=== PATIENT | female | born 1975 | race Native Hawaiian/Other Pacific Islander ===

== ENCOUNTER → 2018-02-19 | Outpatient (CLI) | payer MEDICARE | LOC: M EKG 12:14 | DX: Z01.818 Encounter for other preprocedural examination (principal) | CPT/HCPCS: 93005 ==

== ENCOUNTER 2018-04-12 14:50 | Inpatient (IN) | payer MEDICARE, BC ==
[2018-04-12] MEDS: MORPHINE 2 MG/ML 1ML SYRINGE (J2270) IV (15:52)
[2018-04-12 15:54] LABS: BASO % 0.3 % (0.0-1.0); EOS # 0.3 10^3/uL (0.0-0.50); EOS % 4.6 % (0.0-3.0); HEMATOCRIT 29.3 % (36.0-47.0); HEMOGLOBIN 9.6 g/dl (12.0-15.5); IMMATURE GRANULOCYTE % 0.3 % (0-3.0); LYMPH # 0.8 10^3/uL (1.5-4.5); LYMPH % 12.1 % (24.0-44.0); MEAN CORPUSCULAR HEMOGLOBIN 32.1 pg (27.0-33.0); MEAN CORPUSCULAR HGB CONC 32.8 g/dl (32.0-36.5); MONO # 0.5 10^3/uL (0.0-0.8); MONO % 8.3 % (0.0-5.0); NEUTROPHILS # 4.7 10^3/uL (1.8-7.7); NEUTROPHILS % 74.4 % (36.0-66.0); PLATELET COUNT, AUTOMATED 176 10^3/uL (150-450); RED BLOOD COUNT 2.99 10^6/uL (4.00-5.40); RED CELL DISTRIBUTION WIDTH 12.9 % (11.5-14.5); WHITE BLOOD COUNT 6.3 10^3/uL (4.0-10.0)
[2018-04-12 16:08] LABS: ALBUMIN 3.1 GM/DL (3.2-5.2); ALBUMIN/GLOBULIN RATIO 0.79 (1.00-1.93); ALKALINE PHOSPHATASE 86 U/L (45-117); ALT/SGPT 17 U/L (12-78); ANION GAP 14 MEQ/L (8-16); AST/SGOT 10 U/L (7-37); BILIRUBIN,DIRECT < 0.1 MG/DL (0.0-0.2); BILIRUBIN,TOTAL 0.3 MG/DL (0.2-1.0); BLOOD UREA NITROGEN 88 MG/DL (7-18); CALCIUM LEVEL 7.5 MG/DL (8.5-10.1); CARBON DIOXIDE LEVEL 25 MEQ/L (21-32); CHLORIDE LEVEL 97 MEQ/L (98-107); CPK CREATINE PHOSPHOKINASE 219 U/L (26-192); GLOMERULAR FILTRATION RATE 2.4 (>58); GLUCOSE, FASTING 76 MG/DL (70-100); SODIUM LEVEL 136 MEQ/L (136-145); TROPONIN I 0.05 NG/ML (< 0.10)
[2018-04-12 16:12] LABS: POTASSIUM SERUM 6.5 MEQ/L (3.5-5.1)
[2018-04-12 16:14] LABS: CK-MB VALUE MASS 1.9 NG/ML (<3.6); MB/CK RELATIVE INDEX 0.86 (< OR =4)
[2018-04-12] MEDS: HYDROMORPHONE HCL 0.5 MG/ 0.5 ML SYRINGE (J1170 PER 1) IV (18:07)
[2018-04-12] MEDS ORDERED: HEPARIN SOD (PORCINE) 5000 UNITS/ML VIAL SC (18:30)
[2018-04-12] MEDS ORDERED: PERCOCET 5MG/325MG TAB PO (18:30)
[2018-04-12] MEDS: METOPROLOL SUCC (TopROL XL) 50MG **XL** TAB PO (20:38)
[2018-04-12] MEDS: **hydrALAZINE** 50 MG TAB PO (20:38)
[2018-04-12] MEDS: AMITRIPTYLINE 10 MG TAB PO (20:38)
[2018-04-12] MEDS: PERCOCET 5MG/325MG TAB PO (20:39)
[2018-04-12] MEDS: ONDANSETRON 4MG/2ML VIAL (J2405) IV (20:39)
[2018-04-12] MEDS: SOD POLYSTYRENE SULFONATE SUSP 15 GM/60 ML UD PO (20:49)
[2018-04-12] MEDS: HEPARIN SOD (PORCINE) 5000 UNITS/ML VIAL SC (22:33)
[2018-04-13] MEDS: GENTAMICIN SULF INJ 80MG/2ML VIAL (J1580) IP (00:31)
[2018-04-13] MEDS: VANCOMYCIN 1000 MG/20 ML VIAL (J3370) IP (00:31)
[2018-04-13] MEDS: MORPHINE 4 MG/ML 1ML VIAL/SYRINGE (J2270) IV ×2 (00:40→05:09)
[2018-04-13 01:31] LABS: BF MONONUCLEAR CELL % 93.6 % (0-0); BF POLYMORPHONUCLEAR CELL % 6.4 % (0-0); RBC BODY FLUID < 2 10^3/uL (<2); WBC BODY FLUID 47 /uL (0-10)
[2018-04-13 01:33] LABS: APPEARANCE, BODY FLUID CLEAR (CLEAR); BF DIFF IF INDICATED? YES (NO); PERITONEAL FL COLOR PALE YELLOW (COLORLESS); SOURCE, BODY FLUID PERITONEAL
[2018-04-13] MEDS: HEPARIN SOD (PORCINE) 5000 UNITS/ML VIAL SC ×3 (05:09→21:18)
[2018-04-13 06:39] LABS: HEMATOCRIT 25.5 % (36.0-47.0); HEMOGLOBIN 8.5 g/dl (12.0-15.5); MEAN CORPUSCULAR HEMOGLOBIN 32.1 pg (27.0-33.0); MEAN CORPUSCULAR HGB CONC 33.3 g/dl (32.0-36.5); MEAN CORPUSCULAR VOLUME 96.2 fl (80.0-96.0); PLATELET COUNT, AUTOMATED 157 10^3/uL (150-450); RED BLOOD COUNT 2.65 10^6/uL (4.00-5.40); RED CELL DISTRIBUTION WIDTH 12.8 % (11.5-14.5); WHITE BLOOD COUNT 6.3 10^3/uL (4.0-10.0)
[2018-04-13 07:06] LABS: ANION GAP 14 MEQ/L (8-16); BLOOD UREA NITROGEN 87 MG/DL (7-18); CALCIUM LEVEL 7.3 MG/DL (8.5-10.1); CARBON DIOXIDE LEVEL 24 MEQ/L (21-32); CHLORIDE LEVEL 98 MEQ/L (98-107); GLOMERULAR FILTRATION RATE 2.4 (>58); GLUCOSE, FASTING 80 MG/DL (70-100); SODIUM LEVEL 136 MEQ/L (136-145)
[2018-04-13 07:10] LABS: POTASSIUM SERUM 5.3 MEQ/L (3.5-5.1)
[2018-04-13] MEDS: CALCITRIOL 0.25 MCG CAP (S0169) PO (08:01)
[2018-04-13] MEDS: **hydrALAZINE** 50 MG TAB PO ×3 (08:01→21:18)
[2018-04-13] MEDS: amLODIPine 10 MG TAB PO (08:02)
[2018-04-13] MEDS: (RENVELA) SEVELAMER **CARBONate** 800 MG TAB PO ×3 (08:02→17:08)
[2018-04-13] MEDS ORDERED: LISINOPRIL 40 MG TAB PO (09:00)
[2018-04-13] MEDS: PERCOCET 5MG/325MG TAB PO ×4 (10:27→22:57)
[2018-04-13 14:24] LABS: C REACTIVE PROTEIN QUANTITATIV < 0.30 MG/DL (0.00-0.30)
[2018-04-13 14:40] LABS: ERYTHROCYTE SEDIMENTATION RATE 62 mm/hr (0-20)
[2018-04-13] MEDS ORDERED: ISOVUE-370 76% 100ML VIAL (Q9967) As Ordered (14:43)
[2018-04-13 15:23] LABS: APPEARANCE, BODY FLUID CLEAR (CLEAR); BF MONONUCLEAR CELL % 86.7 % (0-0); BF POLYMORPHONUCLEAR CELL % 13.3 % (0-0); PERITONEAL DIALYSATE FL COLOR COLORLESS (COLORLESS); RBC BODY FLUID < 2 10^3/uL (<2); SOURCE, BODY FLUID PERITONEAL DIALYSATE; WBC BODY FLUID 15 /uL (0-10)
[2018-04-13 15:24] LABS: BF DIFF IF INDICATED? YES (NO)
[2018-04-13 16:19] LABS: IRON (FE) 165 UG/DL (50-170)
[2018-04-13 16:25] LABS: FERRITIN 895 NG/ML (8-252); PERCENT SATURATION 92.7 % (13.2-45.0); TOTAL IRON BINDING CAPACITY 178 UG/DL (250-450)
[2018-04-13] MEDS: AMITRIPTYLINE 10 MG TAB PO (21:17)
[2018-04-13] MEDS: METOPROLOL SUCC (TopROL XL) 100MG *XL* TAB PO (21:18)
[2018-04-14] MEDS: ONDANSETRON 4MG/2ML VIAL (J2405) IV (04:27)
[2018-04-14] MEDS ORDERED: methylPREDNISolone INJ 125 MG/2 ML VIAL (J2930) As Ordered (04:55)
[2018-04-14] MEDS ORDERED: FAMOTIDINE INJ 20MG/2ML VIAL (S0028) IVP ×3 (05:00→09:00)
[2018-04-14] MEDS ORDERED: PROPOFOL 1,000 MG/100 ML VIAL As Ordered (05:04)
[2018-04-14] MEDS ORDERED: GLYCOPYRROLATE INJ 0.2 MG/ML 2 ML VIAL As Ordered (05:05)
[2018-04-14] MEDS: C1 ESTERASE INHIBITOR IV (05:09)
[2018-04-14] MEDS: methylPREDNISolone INJ 125 MG/2 ML VIAL (J2930) IV (05:09)
[2018-04-14] MEDS: DILUENT IV (05:09)
[2018-04-14] MEDS: diphenhydrAMINE INJ 50MG/ML VIAL (J1200) IV ×2 (05:09→05:23)
[2018-04-14] MEDS ORDERED: dexameTHASONE 20 MG/5 ML VIAL (J1100) As Ordered (05:10)
[2018-04-14] MEDS: RACEPINEPHrine 2.25 % UD INHA INH (05:22)
[2018-04-14] MEDS: LIDOCAINE 2% INJ 100 MG/5 ML SYRINGE IV (05:40)
[2018-04-14] MEDS ORDERED: LIDOCAINE 2% MDV 20 ML VIAL As Ordered (05:44)
[2018-04-14] MEDS: PROPOFOL 1,000 MG in APPROPRIATE DILUENT 1 EA IV ×3 (05:54→18:34)
[2018-04-14] MEDS ORDERED: ALBUTEROL SULFATE 2.5 MG/0.5 ML INH NEB SOLN NEB (06:00)
[2018-04-14 06:31] LABS: HEMATOCRIT 30.5 % (36.0-47.0); HEMOGLOBIN 10.1 g/dl (12.0-15.5); MEAN CORPUSCULAR HGB CONC 33.1 g/dl (32.0-36.5); MEAN CORPUSCULAR VOLUME 96.5 fl (80.0-96.0); PLATELET COUNT, AUTOMATED 202 10^3/uL (150-450); RED BLOOD COUNT 3.16 10^6/uL (4.00-5.40); RED CELL DISTRIBUTION WIDTH 12.7 % (11.5-14.5); WHITE BLOOD COUNT 11.5 10^3/uL (4.0-10.0)
[2018-04-14 06:33] LABS: ABG BASE EXCESS -2.4 (-2.0-2.0); ABG HCO3 22.4 MEQ/L (22.0-26.0); ABG O2 SATURATION 98.7 % (95.0-99.0); ABG PARTIAL PRESSURE CO2 38.6 mmHg (35.0-45.0); ABG PARTIAL PRESSURE O2 194.2 mmHg (75.0-100.0); ABG STANDARD HCO3 22.5 MEQ/L (22.0-26.0); ABG TOTAL CO2 23.6 MEQ/L (22.0-29.0); ABG pH (ARTERIAL) 7.382 UNITS (7.350-7.450)
[2018-04-14] MEDS: MIDAZOLAM INJ 2 MG/2 ML VIAL (J2250) IV ×6 (07:00→18:38)
[2018-04-14 07:03] LABS: ANION GAP 13 MEQ/L (8-16); BLOOD UREA NITROGEN 86 MG/DL (7-18); CALCIUM LEVEL 8.2 MG/DL (8.5-10.1); CARBON DIOXIDE LEVEL 25 MEQ/L (21-32); CHLORIDE LEVEL 94 MEQ/L (98-107); GLOMERULAR FILTRATION RATE 2.4 (>58); GLUCOSE, FASTING 99 MG/DL (70-100); MAGNESIUM LEVEL 2.2 MG/DL (1.8-2.4); SODIUM LEVEL 132 MEQ/L (136-145)
[2018-04-14 07:15] LABS: POTASSIUM SERUM 5.7 MEQ/L (3.5-5.1)
[2018-04-14] MEDS: IPRATROPIUM 0.5MG/ALBUTEROL 2.5MG INH SOL UD 3ML (DUONEB)(J7620) NEB ×5 (07:32→23:18)
[2018-04-14] MEDS: HEPARIN SOD (PORCINE) 5000 UNITS/ML VIAL SC ×3 (07:48→22:02)
[2018-04-14] MEDS: FAMOTIDINE IV BAG 20 MG in APPROPRIATE DILUENT 1 EA IV ×2 (07:48→18:03)
[2018-04-14] MEDS: DARBEPOETIN 100 MCG/0.5 ML *NON-DIALYSIS* SYRINGE (J0881) SC (10:57)
[2018-04-14] MEDS: cloNIDine HCL 0.2 MG/24 HR PATCH TOP (10:58)
[2018-04-14] MEDS: CHLORHEXIDINE ORAL RINSE 0.12%/15ML 120ML BOTTLE MT ×2 (12:01→22:02)
[2018-04-14] MEDS ORDERED: PILL CRUSHER/CUTTER 1 EACH XX (12:15)
[2018-04-14] MEDS: amLODIPine 10 MG TAB PO (14:19)
[2018-04-14] MEDS: **hydrALAZINE** 50 MG TAB PO ×2 (16:15→23:42)
[2018-04-15] MEDS: MIDAZOLAM INJ 2 MG/2 ML VIAL (J2250) IV ×3 (02:44→08:15)
[2018-04-15] MEDS: IPRATROPIUM 0.5MG/ALBUTEROL 2.5MG INH SOL UD 3ML (DUONEB)(J7620) NEB ×2 (04:52→07:36)
[2018-04-15] MEDS: HEPARIN SOD (PORCINE) 5000 UNITS/ML VIAL SC ×3 (05:28→23:46)
[2018-04-15] MEDS: FAMOTIDINE IV BAG 20 MG in APPROPRIATE DILUENT 1 EA IV (05:28)
[2018-04-15 05:40] LABS: HEMATOCRIT 25.8 % (36.0-47.0); HEMOGLOBIN 8.5 g/dl (12.0-15.5); MEAN CORPUSCULAR HEMOGLOBIN 31.5 pg (27.0-33.0); MEAN CORPUSCULAR HGB CONC 32.9 g/dl (32.0-36.5); MEAN CORPUSCULAR VOLUME 95.6 fl (80.0-96.0); PLATELET COUNT, AUTOMATED 152 10^3/uL (150-450); WHITE BLOOD COUNT 9.1 10^3/uL (4.0-10.0)
[2018-04-15 05:58] LABS: ANION GAP 19 MEQ/L (8-16); BLOOD UREA NITROGEN 82 MG/DL (7-18); CALCIUM LEVEL 8.1 MG/DL (8.5-10.1); CARBON DIOXIDE LEVEL 22 MEQ/L (21-32); CHLORIDE LEVEL 94 MEQ/L (98-107); GLOMERULAR FILTRATION RATE 2.5 (>58); GLUCOSE, FASTING 103 MG/DL (70-100); MAGNESIUM LEVEL 2.2 MG/DL (1.8-2.4); POTASSIUM SERUM 4.8 MEQ/L (3.5-5.1); SODIUM LEVEL 135 MEQ/L (136-145)
[2018-04-15] MEDS: MORPHINE 4 MG/ML 1ML VIAL/SYRINGE (J2270) IV (08:09)
[2018-04-15] MEDS: amLODIPine 10 MG TAB PO (09:00)
[2018-04-15] MEDS: **hydrALAZINE** 50 MG TAB PO (09:00)
[2018-04-15] MEDS: CHLORHEXIDINE ORAL RINSE 0.12%/15ML 120ML BOTTLE MT (09:26)
[2018-04-15] MEDS: NS 250 ML IV (11:15)
[2018-04-15] MEDS: NS 500 ML IV ×2 (12:40→14:30)
[2018-04-15 13:24] LABS: ANION GAP 20 MEQ/L (8-16); BLOOD UREA NITROGEN 83 MG/DL (7-18); CALCIUM LEVEL 7.3 MG/DL (8.5-10.1); CARBON DIOXIDE LEVEL 18 MEQ/L (21-32); CHLORIDE LEVEL 95 MEQ/L (98-107); GLOMERULAR FILTRATION RATE 2.5 (>58); GLUCOSE, FASTING 109 MG/DL (70-100); POTASSIUM SERUM 4.6 MEQ/L (3.5-5.1); SODIUM LEVEL 133 MEQ/L (136-145)
[2018-04-15 13:29] LABS: LACTIC ACID SEPSIS PROTOCOL 3.2 MMOL/L (0.4-2.0)
[2018-04-15] MEDS: CEPACOL LOZENGE PO ×2 (13:36→17:33)
[2018-04-15] MEDS ORDERED: SLF 3 ML SYR IV (14:30)
[2018-04-15] MEDS: **hydrALAZINE HCL** 25 MG TAB PO (16:00)
[2018-04-15] MEDS: SODIUM BICARBONATE 75 MEQ in NS 0.45% 1,000 ML IV (18:33)
[2018-04-15 18:52] LABS: RBC BODY FLUID < 2 10^3/uL (<2)
[2018-04-15 18:55] LABS: APPEARANCE, BODY FLUID CLEAR (CLEAR); BF DIFF IF INDICATED? NO (NO); PERITONEAL FL COLOR COLORLESS (COLORLESS); SOURCE, BODY FLUID PERITONEAL; WBC BODY FLUID 7 /uL (0-10)
[2018-04-15] MEDS: SLF 3 ML SYR IV (22:00)
[2018-04-15] MEDS: ONDANSETRON 4MG/2ML VIAL (J2405) IV (23:46)
[2018-04-16 05:08] LABS: HEMATOCRIT 21.7 % (36.0-47.0); HEMOGLOBIN 7.1 g/dl (12.0-15.5); MEAN CORPUSCULAR HEMOGLOBIN 31.6 pg (27.0-33.0); MEAN CORPUSCULAR HGB CONC 32.7 g/dl (32.0-36.5); MEAN CORPUSCULAR VOLUME 96.4 fl (80.0-96.0); PLATELET COUNT, AUTOMATED 129 10^3/uL (150-450); RED BLOOD COUNT 2.25 10^6/uL (4.00-5.40); RED CELL DISTRIBUTION WIDTH 13.2 % (11.5-14.5); WHITE BLOOD COUNT 7.5 10^3/uL (4.0-10.0)
[2018-04-16 05:20] LABS: ANION GAP 16 MEQ/L (8-16); BLOOD UREA NITROGEN 73 MG/DL (7-18); C REACTIVE PROTEIN QUANTITATIV 2.23 MG/DL (0.00-0.30); CALCIUM LEVEL 7.3 MG/DL (8.5-10.1); CARBON DIOXIDE LEVEL 24 MEQ/L (21-32); CHLORIDE LEVEL 95 MEQ/L (98-107); GLOMERULAR FILTRATION RATE 2.6 (>58); GLUCOSE, FASTING 91 MG/DL (70-100); MAGNESIUM LEVEL 2.1 MG/DL (1.8-2.4); POTASSIUM SERUM 4.8 MEQ/L (3.5-5.1); SODIUM LEVEL 135 MEQ/L (136-145)
[2018-04-16] MEDS: HEPARIN SOD (PORCINE) 5000 UNITS/ML VIAL SC ×3 (06:00→22:44)
[2018-04-16] MEDS: SLF 3 ML SYR IV ×3 (06:00→22:44)
[2018-04-16 06:41] LABS: ERYTHROCYTE SEDIMENTATION RATE 69 mm/hr (0-20)
[2018-04-16] MEDS: SENOKOT S TAB PO ×2 (09:00→22:43)
[2018-04-16] MEDS ORDERED: SALIVA SUBSTITUTE(MOUTHKOTE) BTL MT (09:00)
[2018-04-16 09:17] LABS: RETIC HEMOGLOBIN EQUIVALENT 35.1 pg (24-36); RETICULOCYTE # 19.4 10^9/L (17-77); RETICULOCYTE % 0.9 % (0.5-1.5)
[2018-04-16 09:23] LABS: REASON FOR REVIEW RBC MORPHOLOGY; SLIDE REVIEW Report; SOURCE PERIPHERAL SMEAR
[2018-04-16] MEDS: CHLORASEPTIC SPRAY MT (09:47)
[2018-04-16] MEDS: cefTRIAXone SOD 2 GM in D5W MINI-BAG PLUS 50 ML IV (09:48)
[2018-04-16 09:58] LABS: FERRITIN 1614 NG/ML (8-252); IRON (FE) 115 UG/DL (50-170); PERCENT SATURATION 57.8 % (13.2-45.0); TOTAL IRON BINDING CAPACITY 199 UG/DL (250-450)
[2018-04-16] MEDS: NS 1,000 ML IV (12:11)
[2018-04-16 12:32] LABS: HEMATOCRIT 21.7 % (36.0-47.0); HEMOGLOBIN 7.1 g/dl (12.0-15.5)
[2018-04-16 14:35] LABS: IMMEDIATE SPIN CROSSMATCH 1 2
[2018-04-16 18:07] LABS: HEMATOCRIT 24.3 % (36.0-47.0); HEMOGLOBIN 8.2 g/dl (12.0-15.5)
[2018-04-16] MEDS: HYDROMORPHONE HCL 0.5 MG/ 0.5 ML SYRINGE (J1170 PER 1) IV (22:43)
[2018-04-17 00:51] LABS: HEMATOCRIT 26.6 % (36.0-47.0); HEMOGLOBIN 8.8 g/dl (12.0-15.5)
[2018-04-17 05:12] LABS: HEMATOCRIT 25.3 % (36.0-47.0); HEMOGLOBIN 8.3 g/dl (12.0-15.5); MEAN CORPUSCULAR HEMOGLOBIN 31.4 pg (27.0-33.0); MEAN CORPUSCULAR HGB CONC 32.8 g/dl (32.0-36.5); MEAN CORPUSCULAR VOLUME 95.8 fl (80.0-96.0); PLATELET COUNT, AUTOMATED 121 10^3/uL (150-450); RED BLOOD COUNT 2.64 10^6/uL (4.00-5.40); RED CELL DISTRIBUTION WIDTH 13.2 % (11.5-14.5)
[2018-04-17 05:21] LABS: ANION GAP 15 MEQ/L (8-16); BLOOD UREA NITROGEN 64 MG/DL (7-18); CALCIUM LEVEL 8.3 MG/DL (8.5-10.1); CARBON DIOXIDE LEVEL 24 MEQ/L (21-32); CHLORIDE LEVEL 97 MEQ/L (98-107); GLOMERULAR FILTRATION RATE 2.7 (>58); GLUCOSE, FASTING 79 MG/DL (70-100); POTASSIUM SERUM 4.3 MEQ/L (3.5-5.1); SODIUM LEVEL 136 MEQ/L (136-145)
[2018-04-17] MEDS: SLF 3 ML SYR IV ×3 (06:47→20:47)
[2018-04-17] MEDS: HEPARIN SOD (PORCINE) 5000 UNITS/ML VIAL SC ×3 (06:47→20:47)
[2018-04-17] MEDS: cefTRIAXone SOD 2 GM in D5W MINI-BAG PLUS 50 ML IV (08:24)
[2018-04-17] MEDS: HYDROMORPHONE HCL 0.5 MG/ 0.5 ML SYRINGE (J1170 PER 1) IV (08:25)
[2018-04-17] MEDS: SENOKOT S TAB PO ×3 (08:25→20:41)
[2018-04-17 08:50] LABS: ALBUMIN 2.4 GM/DL (3.2-5.2); ALBUMIN/GLOBULIN RATIO 0.71 (1.00-1.93); ALKALINE PHOSPHATASE 95 U/L (45-117); ALT/SGPT 61 U/L (12-78); AMYLASE 92 U/L (25-115); AST/SGOT 27 U/L (7-37); BILIRUBIN,DIRECT < 0.1 MG/DL (0.0-0.2); BILIRUBIN,TOTAL 0.3 MG/DL (0.2-1.0); LIPASE 273 U/L (73-393); TOTAL PROTEIN 5.8 GM/DL (6.4-8.2)
[2018-04-17] MEDS: MAGIC MOUTHWASH SUSPENSION BTL SS (10:22)
[2018-04-17] MEDS: amLODIPine 5 MG TAB PO ×2 (12:09→20:44)
[2018-04-17] MEDS: PERCOCET 5MG/325MG TAB PO ×2 (15:08→20:43)
[2018-04-17] MEDS: METOPROLOL 5 MG/5 ML VIAL IV (17:24)
[2018-04-17] MEDS: **hydrALAZINE** 10 MG TAB PO (18:49)
[2018-04-17] MEDS: PIPERACILLIN/TAZOBACTAM SOD 2.25 GM in D5W MINI-BAG PLUS 50 ML IV (18:49)
[2018-04-17] MEDS: CHLORASEPTIC SPRAY MT (20:46)
[2018-04-17] MEDS: ACETAMINOPHEN TAB 650MG DOSE (2X325MG) PO (21:39)
[2018-04-17] MEDS: hydrALAZINE INJ 20 MG/ML VIAL IV (21:40)
[2018-04-18] MEDS: METOPROLOL TART 25 MG TABLET PO ×5 (00:26→23:41)
[2018-04-18] MEDS: PERCOCET 5MG/325MG TAB PO ×5 (00:28→22:39)
[2018-04-18] MEDS: hydrALAZINE INJ 20 MG/ML VIAL IV ×2 (03:00→06:51)
[2018-04-18 05:38] LABS: HEMOGLOBIN 8.8 g/dl (12.0-15.5); MEAN CORPUSCULAR HEMOGLOBIN 32.2 pg (27.0-33.0); MEAN CORPUSCULAR HGB CONC 33.8 g/dl (32.0-36.5); MEAN CORPUSCULAR VOLUME 95.2 fl (80.0-96.0); PLATELET COUNT, AUTOMATED 134 10^3/uL (150-450); RED BLOOD COUNT 2.73 10^6/uL (4.00-5.40); WHITE BLOOD COUNT 10.1 10^3/uL (4.0-10.0)
[2018-04-18 05:54] LABS: ANION GAP 16 MEQ/L (8-16); BLOOD UREA NITROGEN 59 MG/DL (7-18); CALCIUM LEVEL 7.8 MG/DL (8.5-10.1); CARBON DIOXIDE LEVEL 25 MEQ/L (21-32); CHLORIDE LEVEL 95 MEQ/L (98-107); GLOMERULAR FILTRATION RATE 2.7 (>58); GLUCOSE, FASTING 84 MG/DL (70-100); POTASSIUM SERUM 4.1 MEQ/L (3.5-5.1); SODIUM LEVEL 136 MEQ/L (136-145)
[2018-04-18] MEDS: HEPARIN SOD (PORCINE) 5000 UNITS/ML VIAL SC ×3 (05:59→22:37)
[2018-04-18] MEDS: PIPERACILLIN/TAZOBACTAM SOD 2.25 GM in D5W MINI-BAG PLUS 50 ML IV ×2 (05:59→17:41)
[2018-04-18] MEDS: SLF 3 ML SYR IV ×3 (06:00→22:00)
[2018-04-18 06:54] LABS: BF MONONUCLEAR CELL % 89.8 % (0-0); BF POLYMORPHONUCLEAR CELL % 10.2 % (0-0); RBC BODY FLUID < 2 10^3/uL (<2); WBC BODY FLUID 39 /uL (0-10)
[2018-04-18 06:56] LABS: SOURCE, BODY FLUID PERITONEAL DIALYSATE
[2018-04-18 06:57] LABS: APPEARANCE, BODY FLUID CLEAR (CLEAR); BF DIFF IF INDICATED? YES (NO); PERITONEAL DIALYSATE FL COLOR COLORLESS (COLORLESS)
[2018-04-18] MEDS: SENOKOT S TAB PO ×2 (08:12→20:05)
[2018-04-18] MEDS: amLODIPine 10 MG TAB PO (08:13)
[2018-04-18] MEDS: **hydrALAZINE** 50 MG TAB PO ×3 (12:06→23:41)
[2018-04-18] MEDS: ACETAMINOPHEN TAB 650MG DOSE (2X325MG) PO (20:05)
[2018-04-18] MEDS: CHLORASEPTIC SPRAY MT (22:40)
[2018-04-19 05:12] LABS: HEMATOCRIT 26.4 % (36.0-47.0); MEAN CORPUSCULAR HEMOGLOBIN 31.7 pg (27.0-33.0); MEAN CORPUSCULAR HGB CONC 34.1 g/dl (32.0-36.5); PLATELET COUNT, AUTOMATED 158 10^3/uL (150-450); RED BLOOD COUNT 2.84 10^6/uL (4.00-5.40); RED CELL DISTRIBUTION WIDTH 12.8 % (11.5-14.5)
[2018-04-19 05:26] LABS: ANION GAP 12 MEQ/L (8-16); BLOOD UREA NITROGEN 51 MG/DL (7-18); CALCIUM LEVEL 8.4 MG/DL (8.5-10.1); CARBON DIOXIDE LEVEL 25 MEQ/L (21-32); CHLORIDE LEVEL 96 MEQ/L (98-107); GLOMERULAR FILTRATION RATE 2.6 (>58); GLUCOSE, FASTING 88 MG/DL (70-100); MAGNESIUM LEVEL 1.9 MG/DL (1.8-2.4); POTASSIUM SERUM 3.9 MEQ/L (3.5-5.1); SODIUM LEVEL 133 MEQ/L (136-145)
[2018-04-19] MEDS: METOPROLOL TART 25 MG TABLET PO ×4 (06:05→23:37)
[2018-04-19] MEDS: HEPARIN SOD (PORCINE) 5000 UNITS/ML VIAL SC ×3 (06:05→20:20)
[2018-04-19] MEDS: **hydrALAZINE** 50 MG TAB PO ×4 (06:05→23:36)
[2018-04-19] MEDS: PIPERACILLIN/TAZOBACTAM SOD 2.25 GM in D5W MINI-BAG PLUS 50 ML IV ×2 (06:06→18:02)
[2018-04-19] MEDS: SLF 3 ML SYR IV ×3 (06:06→20:20)
[2018-04-19] MEDS ORDERED: MORPHINE 4 MG/ML 1ML VIAL/SYRINGE (J2270) IV (08:45)
[2018-04-19] MEDS ORDERED: BISACODYL 5 MG TAB PO (08:45)
[2018-04-19] MEDS ORDERED: NALOXONE INJ 0.4 MG/1 ML VIAL (J2310) IV (08:45)
[2018-04-19] MEDS: SENOKOT S TAB PO ×2 (09:36→20:19)
[2018-04-19] MEDS: cloNIDine 0.1 MG TAB PO (09:36)
[2018-04-19] MEDS: amLODIPine 10 MG TAB PO (09:37)
[2018-04-19] MEDS: PERCOCET 5MG/325MG TAB PO ×3 (09:45→23:37)
[2018-04-20] MEDS: PIPERACILLIN/TAZOBACTAM SOD 2.25 GM in D5W MINI-BAG PLUS 50 ML IV ×2 (05:16→18:04)
[2018-04-20] MEDS: SLF 3 ML SYR IV ×3 (05:16→22:05)
[2018-04-20] MEDS: METOPROLOL TART 25 MG TABLET PO ×4 (05:17→23:55)
[2018-04-20] MEDS: HEPARIN SOD (PORCINE) 5000 UNITS/ML VIAL SC ×3 (05:17→22:05)
[2018-04-20] MEDS: **hydrALAZINE** 50 MG TAB PO ×4 (05:17→23:55)
[2018-04-20] MEDS: PERCOCET 5MG/325MG TAB PO ×3 (06:15→22:22)
[2018-04-20 08:46] LABS: BASO % 0.3 % (0.0-1.0); EOS # 0.4 10^3/uL (0.0-0.50); EOS % 3.8 % (0.0-3.0); HEMATOCRIT 28.1 % (36.0-47.0); HEMOGLOBIN 9.4 g/dl (12.0-15.5); IMMATURE GRANULOCYTE % 1.9 % (0-3.0); LYMPH % 10.1 % (24.0-44.0); MEAN CORPUSCULAR HEMOGLOBIN 31.6 pg (27.0-33.0); MEAN CORPUSCULAR HGB CONC 33.5 g/dl (32.0-36.5); MEAN CORPUSCULAR VOLUME 94.6 fl (80.0-96.0); MONO # 1.3 10^3/uL (0.0-0.8); MONO % 12.4 % (0.0-5.0); NEUTROPHILS # 7.3 10^3/uL (1.8-7.7); NEUTROPHILS % 71.5 % (36.0-66.0); PLATELET COUNT, AUTOMATED 195 10^3/uL (150-450); RED BLOOD COUNT 2.97 10^6/uL (4.00-5.40); WHITE BLOOD COUNT 10.2 10^3/uL (4.0-10.0)
[2018-04-20 09:10] LABS: LACTIC ACID SEPSIS PROTOCOL 0.4 MMOL/L (0.4-2.0)
[2018-04-20 09:24] LABS: ALBUMIN 2.1 GM/DL (3.2-5.2); ALKALINE PHOSPHATASE 99 U/L (45-117); ALT/SGPT 32 U/L (12-78); ANION GAP 15 MEQ/L (8-16); AST/SGOT 16 U/L (7-37); BILIRUBIN,TOTAL 0.3 MG/DL (0.2-1.0); BLOOD UREA NITROGEN 51 MG/DL (7-18); CALCIUM LEVEL 8.1 MG/DL (8.5-10.1); CARBON DIOXIDE LEVEL 25 MEQ/L (21-32); CHLORIDE LEVEL 96 MEQ/L (98-107); GLOMERULAR FILTRATION RATE 2.6 (>58); GLUCOSE, FASTING 93 MG/DL (70-100); LIPASE 252 U/L (73-393); POTASSIUM SERUM 3.8 MEQ/L (3.5-5.1); SODIUM LEVEL 136 MEQ/L (136-145); TOTAL PROTEIN 5.6 GM/DL (6.4-8.2)
[2018-04-20] MEDS: amLODIPine 10 MG TAB PO (09:25)
[2018-04-20] MEDS: SENOKOT S TAB PO ×2 (09:26→20:29)
[2018-04-20 11:55] LABS: APPEARANCE, BODY FLUID CLEAR (CLEAR); BF DIFF IF INDICATED? YES (NO); PERITONEAL DIALYSATE FL COLOR COLORLESS (COLORLESS); RBC BODY FLUID < 2 10^3/uL (<2); SOURCE, BODY FLUID PERITONEAL DIALYSATE; WBC BODY FLUID 17 /uL (0-10)
[2018-04-21 05:22] LABS: BASO % 0.5 % (0.0-1.0); EOS # 0.4 10^3/uL (0.0-0.50); EOS % 4.9 % (0.0-3.0); HEMATOCRIT 28.5 % (36.0-47.0); HEMOGLOBIN 9.5 g/dl (12.0-15.5); IMMATURE GRANULOCYTE % 2.3 % (0-3.0); LYMPH # 0.9 10^3/uL (1.5-4.5); LYMPH % 10.6 % (24.0-44.0); MEAN CORPUSCULAR HEMOGLOBIN 31.8 pg (27.0-33.0); MEAN CORPUSCULAR HGB CONC 33.3 g/dl (32.0-36.5); MEAN CORPUSCULAR VOLUME 95.3 fl (80.0-96.0); MONO # 1.1 10^3/uL (0.0-0.8); MONO % 12.6 % (0.0-5.0); NEUTROPHILS # 5.8 10^3/uL (1.8-7.7); NEUTROPHILS % 69.1 % (36.0-66.0); PLATELET COUNT, AUTOMATED 218 10^3/uL (150-450); RED BLOOD COUNT 2.99 10^6/uL (4.00-5.40); RED CELL DISTRIBUTION WIDTH 13.2 % (11.5-14.5); WHITE BLOOD COUNT 8.4 10^3/uL (4.0-10.0)
[2018-04-21 05:38] LABS: ANION GAP 14 MEQ/L (8-16); BLOOD UREA NITROGEN 47 MG/DL (7-18); CALCIUM LEVEL 8.4 MG/DL (8.5-10.1); CARBON DIOXIDE LEVEL 25 MEQ/L (21-32); CHLORIDE LEVEL 94 MEQ/L (98-107); GLOMERULAR FILTRATION RATE 2.5 (>58); GLUCOSE, FASTING 95 MG/DL (70-100); POTASSIUM SERUM 3.7 MEQ/L (3.5-5.1); SODIUM LEVEL 133 MEQ/L (136-145)
[2018-04-21] MEDS: SLF 3 ML SYR IV ×3 (06:07→20:27)
[2018-04-21] MEDS: PIPERACILLIN/TAZOBACTAM SOD 2.25 GM in D5W MINI-BAG PLUS 50 ML IV (06:07)
[2018-04-21] MEDS: HEPARIN SOD (PORCINE) 5000 UNITS/ML VIAL SC (06:07)
[2018-04-21] MEDS: **hydrALAZINE** 50 MG TAB PO ×4 (06:08→23:11)
[2018-04-21] MEDS: METOPROLOL TART 25 MG TABLET PO ×4 (06:08→23:11)
[2018-04-21] MEDS: PERCOCET 5MG/325MG TAB PO ×2 (06:23→19:42)
[2018-04-21 08:59] LABS: APPEARANCE, BODY FLUID CLEAR (CLEAR); BF MONONUCLEAR CELL % 83.3 % (0-0); BF POLYMORPHONUCLEAR CELL % 16.7 % (0-0); PERITONEAL DIALYSATE FL COLOR COLORLESS (COLORLESS); RBC BODY FLUID < 2 10^3/uL (<2); SOURCE, BODY FLUID PERITONEAL DIALYSATE; WBC BODY FLUID 12 /uL (0-10)
[2018-04-21 09:00] LABS: BF DIFF IF INDICATED? YES (NO)
[2018-04-21] MEDS: SENOKOT S TAB PO ×4 (09:00→20:26)
[2018-04-21] MEDS: amLODIPine 10 MG TAB PO (09:02)
[2018-04-21] MEDS: HEPARIN SOD (PORCINE) 5000 UNITS/ML VIAL PD (10:00)
[2018-04-21] MEDS: DARBEPOETIN 100 MCG/0.5 ML *NON-DIALYSIS* SYRINGE (J0881) SC (10:04)
[2018-04-21] MEDS: FLUCONAZOLE 100 MG TAB PO (13:37)
[2018-04-21] MEDS: AMOXICILLIN 500 MG CAP PO (20:25)
[2018-04-22] MEDS: METOPROLOL TART 25 MG TABLET PO ×2 (06:03→10:23)
[2018-04-22] MEDS: **hydrALAZINE** 50 MG TAB PO ×2 (06:03→10:22)
[2018-04-22] MEDS: SLF 3 ML SYR IV ×2 (06:03→14:00)
[2018-04-22] MEDS: PERCOCET 5MG/325MG TAB PO (06:13)
[2018-04-22 06:40] LABS: BASO % 0.3 % (0.0-1.0); EOS # 0.5 10^3/uL (0.0-0.50); EOS % 5.9 % (0.0-3.0); HEMATOCRIT 29.2 % (36.0-47.0); HEMOGLOBIN 9.7 g/dl (12.0-15.5); IMMATURE GRANULOCYTE % 4.5 % (0-3.0); LYMPH # 1.1 10^3/uL (1.5-4.5); LYMPH % 14.6 % (24.0-44.0); MEAN CORPUSCULAR HEMOGLOBIN 31.7 pg (27.0-33.0); MEAN CORPUSCULAR HGB CONC 33.2 g/dl (32.0-36.5); MEAN CORPUSCULAR VOLUME 95.4 fl (80.0-96.0); MONO % 13.3 % (0.0-5.0); NEUTROPHILS # 4.8 10^3/uL (1.8-7.7); NEUTROPHILS % 61.4 % (36.0-66.0); PLATELET COUNT, AUTOMATED 246 10^3/uL (150-450); RED BLOOD COUNT 3.06 10^6/uL (4.00-5.40); RED CELL DISTRIBUTION WIDTH 13.2 % (11.5-14.5); WHITE BLOOD COUNT 7.8 10^3/uL (4.0-10.0)
[2018-04-22] MEDS ORDERED: PERCOCET 5MG/325MG TAB PO ×2 (07:00)
[2018-04-22 07:20] LABS: ANION GAP 15 MEQ/L (8-16); BLOOD UREA NITROGEN 42 MG/DL (7-18); CARBON DIOXIDE LEVEL 25 MEQ/L (21-32); CHLORIDE LEVEL 94 MEQ/L (98-107); GLOMERULAR FILTRATION RATE 2.6 (>58); GLUCOSE, FASTING 85 MG/DL (70-100); POTASSIUM SERUM 3.5 MEQ/L (3.5-5.1); SODIUM LEVEL 134 MEQ/L (136-145)
[2018-04-22 08:11] LABS: RBC BODY FLUID < 2 10^3/uL (<2); WBC BODY FLUID 12 /uL (0-10)
[2018-04-22 08:19] LABS: APPEARANCE, BODY FLUID CLEAR (CLEAR); BF DIFF IF INDICATED? NO (NO); PERITONEAL DIALYSATE FL COLOR COLORLESS (COLORLESS); SOURCE, BODY FLUID PERITONEAL DIALYSATE
[2018-04-22] MEDS: SENOKOT S TAB PO (09:00)
[2018-04-22] MEDS: amLODIPine 10 MG TAB PO (10:22)
[2018-04-22] MEDS: AMOXICILLIN 500 MG CAP PO (10:23)
[2018-04-22 12:40] LABS: MAGNESIUM LEVEL 2.3 MG/DL (1.8-2.4)
[2018-04-22 15:25] LABS: PHOSPHORUS LEVEL 9.3 MG/DL (2.5-4.9)
[2018-04-22] MEDS ORDERED: **hydrALAZINE** 50 MG TAB PO (21:00)
[2018-04-22] MEDS ORDERED: METOPROLOL TART 50 MG TAB PO (21:00)
== END 2018-04-22 18:00 | disposition home or self-care (01) | DRG 208 ==
LOC: M ICU 04-14 04:52 → M PCU 04-17 22:03 → M ED 14:50 → M ED INP 18:30 → M MSPAV 20:05
PROC: 5A1935Z Respiratory Ventilation, Less than 24 Consecutive Hours (ICD-10-PCS; principal; 2018-04-14)
PROC: 0BH17EZ Insertion of Endotracheal Airway into Trachea, Via Natural or Artificial Opening (ICD-10-PCS; 2018-04-14)
PROC: 30233N1 Transfusion of Nonautologous Red Blood Cells into Peripheral Vein, Percutaneous Approach (ICD-10-PCS; 2018-04-16)
DX: J14 Pneumonia due to Hemophilus influenzae (principal); N18.6 End stage renal disease; J96.00 Acute respiratory failure, unspecified whether with hypoxia or hypercapnia; A41.9 Sepsis, unspecified organism; I12.0 Hypertensive chronic kidney disease with stage 5 chronic kidney disease or end stage renal disease; E87.1 Hypo-osmolality and hyponatremia; E87.2 Acidosis; R10.9 Unspecified abdominal pain; E87.5 Hyperkalemia; D63.1 Anemia in chronic kidney disease; I95.2 Hypotension due to drugs; N25.0 Renal osteodystrophy; E83.39 Other disorders of phosphorus metabolism; E78.5 Hyperlipidemia, unspecified; T78.3XXA Angioneurotic edema, initial encounter; T50.8X5A Adverse effect of diagnostic agents, initial encounter; Z99.2 Dependence on renal dialysis; Z79.899 Other long term (current) drug therapy; T44.7X5A Adverse effect of beta-adrenoreceptor antagonists, initial encounter; T36.8X5A Adverse effect of other systemic antibiotics, initial encounter; T36.5X5A Adverse effect of aminoglycosides, initial encounter